=== PATIENT | female | born 1970 | race Hispanic/Latino ===

== ENCOUNTER 2022-04-07 09:25 | Outpatient (CLI) | payer OTHER | END 2022-04-07 09:26 | disposition home or self-care (01) | LOC: CSHLAB 09:25 | PROVIDERS: ATTEND Otolaryngology Otolaryngic Allergy | DX: Z01.812 Encounter for preprocedural laboratory examination (principal); E11.9 Type 2 diabetes mellitus without complications; I10 Essential (primary) hypertension; E78.5 Hyperlipidemia, unspecified; Z68.42 Body mass index [BMI] 45.0-49.9, adult | CPT/HCPCS: 85014 ==

== ENCOUNTER 2022-04-12 06:08 | Observation (INO) | payer OTHER ==
[2022-04-12] MEDS ORDERED: Lidocaine 4% PF 5 ML AMP ONE (06:35)
[2022-04-12] MEDS ORDERED: Ondansetron PF 4 MG/2 ML Vial ONE (06:37)
[2022-04-12] MEDS ORDERED: Lidocaine 1% PF 5 ML VIAL ONE (06:37)
[2022-04-12] MEDS ORDERED: Fentanyl 100 MCG/2 ML VIAL ONE ×2 (06:37→08:09)
[2022-04-12] MEDS ORDERED: Rocuronium Bromide 10 MG/ML (10ML VIAL) ONE (06:37)
[2022-04-12] MEDS ORDERED: PROPOFOL 20 ML ONE (06:37)
[2022-04-12] MEDS ORDERED: Glycopyrrolate 0.2 MG/ML 5 ML SYRINGE ONE (06:37)
[2022-04-12] MEDS ORDERED: Midazolam HCl 2 mg/2 ml Vial ONE (06:37)
[2022-04-12] MEDS ORDERED: Dexamethasone 4 mg/ml Vial ONE (06:37)
[2022-04-12] MEDS ORDERED: Clindamycin/D5W 900 mg/50 ml Premix Bag ONE (06:58)
[2022-04-12] MEDS ORDERED: Lidocaine 4% Topical Sol 50 ML BOT ONE (07:04)
[2022-04-12] MEDS ORDERED: Dexmedetomidine 200 MCG/2 ML VIAL ONE (07:04)
[2022-04-12] MEDS ORDERED: Propofol 1,000 MG/100 ML VIAL IV ONE (07:08)
[2022-04-12] MEDS ORDERED: PHENYLEPHRINE-NS 100 MCG/ML 10 ML SYRINGE ONE (07:19)
[2022-04-12] MEDS ORDERED: Lidocaine 1% w/Epinephrine 1:100K 20 ML VIAL ONE (07:29)
[2022-04-12 07:48] LABS: SARS-CoV-2 NAA Rapid Test Not Detected (NotDetected)
[2022-04-12] MEDS ORDERED: Ondansetron PF 4 MG/2 ML Vial IVP PRN (07:48)
[2022-04-12] MEDS ORDERED: Ondansetron ODT 4 MG TAB PO PRN (07:48)
[2022-04-12] MEDS ORDERED: HYDROcodone/Acetaminophen 10/325 mg Tablet PO PRN (07:56)
[2022-04-12] MEDS: HYDROcodone/Acetaminophen 10/325 mg Tablet PO PRN ×2 (12:39→18:56)
[2022-04-12] MEDS ORDERED: Loratadine 10 MG TAB PO SCH (13:00)
[2022-04-12] MEDS ORDERED: FLU VACC QS2022-23(6MOS UP)/PF 60 MCG/0.5 ML SYRINGE IM ONE (14:30)
[2022-04-12] MEDS ORDERED: diphenhydrAMINE 25 MG CAP PO PRN (18:12)
[2022-04-12] MEDS: Lisinopril 20 MG TAB PO SCH (20:49)
[2022-04-12] MEDS: Topiramate 25 MG TAB PO SCH (20:50)
[2022-04-12] MEDS: Famotidine 20 MG TAB PO SCH (20:50)
[2022-04-12] MEDS ORDERED: clonazePAM 1 MG TAB PO SCH (21:00)
[2022-04-12] MEDS ORDERED: Sertraline 100 MG TAB PO SCH (21:00)
[2022-04-13 06:08] VITALS: BMI 46.3
[2022-04-13] MEDS: Famotidine 20 MG TAB PO SCH (07:49)
[2022-04-13] MEDS: HYDROcodone/Acetaminophen 10/325 mg Tablet PO PRN (07:49)
[2022-04-13] MEDS: Lisinopril 20 MG TAB PO SCH (07:50)
[2022-04-13] MEDS ORDERED: Ezetimibe 10 MG TAB PO SCH (09:00)
[2022-04-13] MEDS ORDERED: Cholecalciferol 1,000 UNITS (25 MCG) TAB PO SCH (09:00)
[2022-04-13] MEDS ORDERED: Loratadine 10 MG TAB PO SCH (09:00)
[2022-04-13] MEDS ORDERED: Calcium Carbonate 600 MG + Vit D TAB PO SCH (09:00)
[2022-04-13] MEDS ORDERED: Allopurinol 300 MG TAB PO SCH (09:00)
[2022-04-13] MEDS ORDERED: Magnesium Oxide 400 MG TAB PO SCH (09:00)
[2022-04-13] MEDS: Topiramate 25 MG TAB PO SCH (09:08)
[2022-04-13 09:31] VITALS: BP 122/82; TEMP 98.5
== END 2022-04-13 09:15 | disposition home or self-care (01) ==
LOC: CSHSDC 06:08 → CSHICU 07:48 → INTOOBSV 07:48
PROVIDERS: ADMIT Otolaryngology Otolaryngic Allergy; ATTEND Otolaryngology Otolaryngic Allergy
PROC: 0GTG0ZZ Resection of Left Thyroid Gland Lobe, Open Approach (ICD-10-PCS; principal; 2022-04-12)
PROC: 0GTJ0ZZ Resection of Thyroid Gland Isthmus, Open Approach (ICD-10-PCS; 2022-04-12)
DX: D34 Benign neoplasm of thyroid gland (principal); E04.1 Nontoxic single thyroid nodule; I10 Essential (primary) hypertension; E11.9 Type 2 diabetes mellitus without complications; E78.5 Hyperlipidemia, unspecified; D64.9 Anemia, unspecified; F41.9 Anxiety disorder, unspecified; I25.10 Atherosclerotic heart disease of native coronary artery without angina pectoris; Z79.82 Long term (current) use of aspirin; E66.9 Obesity, unspecified; Z88.0 Allergy status to penicillin; Z88.2 Allergy status to sulfonamides; Z91.040 Latex allergy status; Z68.41 Body mass index [BMI] 40.0-44.9, adult
CPT/HCPCS: 88307; 90471; 90686; 94760; G0008; G0378; J1100; J2250; J2405; J2704; J3010; J3490; U0002

== ENCOUNTER 2022-12-29 08:57 | Outpatient (CLI) | payer OTHER | END 2022-12-29 08:58 | disposition home or self-care (01) | LOC: CSHULT 08:57 | PROVIDERS: ATTEND Otolaryngology Otolaryngic Allergy | DX: E04.1 Nontoxic single thyroid nodule (principal) | CPT/HCPCS: 76536 ==